=== PATIENT | male | born 1935 | race Caucasian/White ===

== ENCOUNTER → 2017-06-14 | Outpatient (CLI) | payer OTHER ==
[~2017-06-14] MED LIST: NS 100 ML IV 100 ML IV ONE
[2017-06-14 09:52] LABS: CREATININE 1.13 mg/dL (0.70-1.30)
--- NOTE | 2017-06-15 09:47 | CT ---
HISTORY: Diverticulosis. Study: CT abdomen and pelvis with contrast Comparison: None available. Technique: Multiple axial images of the abdomen and pelvis were obtained from the lung bases to the pubic symphy sis after the administration of IV contrast. Dose reduction techniques including Automated Exposure Control (AEC) and adjustment of mA and kV were utilized. Findings: The visualized portions of the lung bases are unremarkable. Multiple benign appearing hypodense lesio ns within the liver, many are too small to characterize. These do not demonstrate contrast enhancemen t. The liver is otherwise unremarkable. The spleen, pancreas, kidneys, and adrenal glands are unrema rkable in their CT appearance. The gallbladder is unremarkable in its CT appearance. No significant mesenteric lymphadenopathy or stranding can be observed. No free fluid or free air is seen within th e abdomen. Extensive diverticulosis of the colon, which is worse within the rectosigmoid. No seconda ry signs to suggest diverticulitis. The large and small bowel are otherwise unremarkable. The appendi x appears normal. The prostate gland is mildly enlarged but otherwise unremarkable. The urinary bladd er is grossly unremarkable. Degenerative changes of the spine. The osseous structures are otherwise i ntact. IMPRESSION: 1. No CT evidence of acute abdominal/pelvic pathology. 2. Diverticulosis without evidence of diverticulitis. 3. Other chronic findings as above. Reported By:
== END ==
LOC: RAD 09:19
PROVIDERS: ATTEND Internal Medicine
DX: K57.90 Diverticulosis of intestine, part unspecified, without perforation or abscess without bleeding (principal)
CPT/HCPCS: 36415; 74178; 82565; 84520; A4222